=== PATIENT | male | born 1995 | race Two or more races ===

== ENCOUNTER 2019-04-02 00:22 | Emergency (ER) | payer OTHER ==
[~2019-04-02] VITALS: Ht 167.6 cm; Wt 86.2 kg
[2019-04-02 00:34] VITALS: BP 126/83
--- NOTE | 2019-04-02 00:35 | NUR ---
ED Nurse Note: AMbulated to ED from home, pt crushed his L thumb in a car door at 1999 today, nail is purple, visible swelling noted, skin intact
--- NOTE | 2019-04-02 00:37 | Emergency Room Report ---
History of Present Illness General Chief Complaint: Upper Extremity Injury Source: Patient Present Illness HPI Disclaimer: Please note that this report is being documented using DRAGON technology. This can lead to erroneous entry secondary to incorrect interpretation by the dictating instrument. HPI: 23-year-old male presents for evaluation of left thumb injury. He is right -hand dominant. 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 Noted immediate pain and swelling there was able to tolerate it for some time. On the way home he noted worsening throbbing and came in for evaluation. Denies any skin breakdown or bleeding. Difficulty flexing the left thumb. Denies any changes in sensation. Allergies: Coded Allergies: No Known Allergies (Unverified , 04/02/19) Nursing Documentation-[facility] Past Medical History: No History, Except For Hx Asthma: Yes Review of Systems All Other Systems: negative except mentioned in HPI Physical Exam Vital Signs Date Time Temp Pulse Resp B/P (MAP) Pulse Ox O2 Delivery O2 Flow Rate FiO2 04/02/19 00:26 98.2 80 18 126/83 (97) 96 Room Air General: Awake and alert, no acute distress HEENT: NC/AT. EOMI. Resp: Normal work of breathing Skin: Intact. No abrasions, laceration or rash over the exposed skin MSK: Normal tone and bulk. Moving all extremities. Tenderness palpation over the distal phalanx of the left thumb. Mild edema. No skin breakdown. Capillary refill less than 2 seconds. Sensation intact over the radial and ulnar aspects. No tenderness over the base of the thumb or the anatomic snuffbox. No tenderness in the wrist, dorsum of the hand or other digits. Otherwise atraumatic Neuro: Awake and alert. Mentating appropriately Medical Decision Making Diagnostic Impression: Primary Impression: Thumb contusion ER Course 23-year-old male presents for evaluation of left thumb injury. X-ray was ordered show some soft tissue swelling but no obvious fracture. Patient was placed in a splint. He can return to work as he feels fit. Paperwork was filled out for him. Gave him the number for the orthopedic urgent care. Prescribed Motrin.He can return with any new or worsening symptoms. Other X-Ray Diagnostic Results Other X-Ray Diagnostic Results : X-Ray ordered: Left thumb Indication: Pain EP Interpretation: Yes Interpretation: no dislocation, no fractures, other - Soft tissue swelling. No obvious fracture Impression: Other - Soft tissue swelling without obvious fracture Electronically Signed by: Electronically signed by Dr. Artem Morales Last Vital Signs Date Time Temp Pulse Resp B/P (MAP) Pulse Ox O2 Delivery O2 Flow Rate FiO2 04/02/19 00:26 98.2 80 18 126/83 (97) 96 Room Air Disposition: HOME, SELF-CARE Condition: Stable Scripts Ibuprofen* (MOTRIN*) 600 Mg Tablet 600 MG ORAL Q8H PRN for For Pain, #30 TAB 0 Refills Prov: Artem Morales MD 04/02/19 Artem Morales MD Apr 02, 2019 00:37
[2019-04-02] MEDS ORDERED: HYDROcodone/Acetamin 7.5/325 tab ORAL ONE (00:45)
[2019-04-02] MEDS ORDERED: IBUPROFEN600 MG ORAL (00:54)
--- NOTE | 2019-04-02 01:00 | NUR ---
ER DISCHARGE NOTE: Patient is cleared to be discharged per ERMD, pt is aox4, on room air, with stable vital signs. pt was given dc and prescription instructions, pt was able to verbalize understanding, pt id band removed without complications. pt is able to ambulate with steady gait. pt took all belongings.
[2019-04-02 01:28] VITALS: BP 126/83
--- NOTE | 2019-04-02 12:11 | Diagnostic Imaging Report ---
Indication: Left thumb pain after slamming door on its Technique: 3 views of the left thumb Comparison: none Findings: No acute fractures. No dislocations. Joint spaces are preserved Impression: Negative
== END 2019-04-02 01:30 | disposition home or self-care (01) ==
LOC: EMR 00:41
DX: S60.012A Contusion of left thumb without damage to nail, initial encounter (principal); J45.909 Unspecified asthma, uncomplicated; W23.0XXA Caught, crushed, jammed, or pinched between moving objects, initial encounter; Y93.89 Activity, other specified; Y92.810 Car as the place of occurrence of the external cause
CPT/HCPCS: 29130; 99283